=== PATIENT | male | born 1960 | race Caucasian/White ===

== ENCOUNTER 2021-07-16 21:50 | Emergency (ER) | payer OTHER ==
--- NOTE | 2021-07-16 21:52 | ERPHSYRPT ---
- History of Present Illness Time Seen by Provider: 07/16/21 21:51 Source: patient Exam Limitations: no limitations Physician History: This is a 61-year-old white male who has not been feeling well for approximately 5 days. Initially he had a mild cough mild shortness of breath muscle aches and pains. Those symptoms have improved but he does feels weak and just does not feel well his a lot of fatigue. Patient went to [facility] in an outpatient clinic and had a rapid COVID-19 test performed and it came back positive. Patient does not take any medications chronically and he has no known drug allergies. His primary care physician is Dr. Roman. The [facility] told him to go to the nearest emergency room to be evaluated and to obtain a CAT scan of the chest to better define any pulmonary issues. Patient does not have any chest pain. Is not had any nausea vomiting or diarrhea recently. He does state he has not been drinking well in the last several days because food and drink does not taste good to him. Timing/Duration: day(s) (5) Cough Quality/Degree: mild Possible Cause: no prior episodes Modifying Factors: Improves With: coughing Associated Symptoms: cough, muscle aches, shortness of breath, No chest pain/soreness Allergies/Adverse Reactions: No Known Drug Allergies Allergy (Unverified 07/16/21 22:01) Home Medications: No Reportable Medications [No Reported Medications] 07/16/21 [History] Travel Risk - International Travel Have you traveled outside of the country in past 3 weeks: No - Coronavirus Screening Are you exhibiting any of the following symptoms?: Yes Symptoms: Cough: New Onset, Shortness of Breath, Loss of Taste or Smell, Headaches/Body Aches/Fatigue Close contact with a COVID-19 positive Pt in past 14-21 Days: No - Review of Systems Constitutional: Fatigue Eyes: No Symptoms Ears, Nose, & Throat: No Symptoms Respiratory: Cough, Dyspnea Cardiac: No Symptoms Abdominal/Gastrointestinal: No Symptoms Genitourinary Symptoms: No Symptoms Musculoskeletal: Arthralgias, Myalgias Neurological: No Symptoms Psychological: No Symptoms Endocrine: No Symptoms Hematologic/Lymphatic: No Symptoms Immunological/Allergic: No Symptoms All Other Systems: Reviewed and Negative - Past Medical History Pertinent Past Medical History: Yes Neurological History: No Pertinent History ENT History: No Pertinent History Cardiac History: No Pertinent History Respiratory History: No Pertinent History Endocrine Medical History: No Pertinent History Musculoskeletal History: No Pertinent History GI Medical History: No Pertinent History History: No Pertinent History Psycho-Social History: No Pertinent History Male Reproductive Disorders: No Pertinent History - Past Surgical History Past Surgical History: Yes Neuro Surgical History: No Pertinent History Cardiac: No Pertinent History Respiratory: No Pertinent History Gastrointestinal: No Pertinent History Genitourinary: No Pertinent History Musculoskeletal: No Pertinent History Male Surgical History: No Pertinent History Other Surgical History: no surgeries - Social History Smoking Status: Current every day smoker Exposure to second hand smoke: No Drug Use: none - Nursing Vital Signs Nursing Vital Signs: Initial Vital Signs Temperature 98.8 F 07/16/21 22:03 Pulse Rate 79 07/16/21 22:03 Respiratory Rate 22 07/16/21 22:03 Blood Pressure 143/87 07/16/21 22:03 O2 Sat by Pulse Oximetry 97 07/16/21 22:03 Pain Scale Pain Intensity 0 - Physical Exam General Appearance: no apparent distress, alert, anxiety Eye Exam: PERRL/EOMI, eyes nml inspection Ears, Nose, Throat Exam: normal ENT inspection, moist mucous membranes Neck Exam: normal inspection, non-tender, supple, full range of motion Respiratory Exam: normal breath sounds, lungs clear, airway intact, No chest te nderness, No respiratory distress Cardiovascular Exam: regular rate/rhythm, normal heart sounds, normal peripheral pulses Gastrointestinal/Abdomen Exam: soft, normal bowel sounds, No tenderness Rectal Exam: not done Back Exam: normal inspection, normal range of motion, No CVA tenderness, No vertebral tenderness Extremity Exam: normal inspection, normal range of motion, pelvis stable Neurologic Exam: alert, oriented x 3, cooperative, industrial sewer II-XII nml as tested, normal mood/affect, nml cerebellar function, nml station & gait, sensation nml Skin Exam: normal color, warm, dry Lymphatic Exam: No adenopathy SpO2 Interpretation: normal O2 Delivery: Room Air - Course Nursing assessment & vital signs reviewed: Yes EKG Interpreted by Me: RATE (78), Sinus Rhythm, NORMAL AXIS, NORMAL INTERVALS, NORMAL QRS, NORMAL ST-T, Other (No acute ischemic changes on today's EKG. There is no comparison EKG available) Ordered Tests: Active Orders 24 hr Category Date Time Status EKG-ER Only STAT Care 07/16/21 22:06 Active IV Insertion STAT Care 07/16/21 22:06 Active Pulse Oximetry (ED) STAT Care 07/16/21 22:06 Active CHEST WITH CONTRAST [CT] Stat Exams 07/16/21 23:54 Taken BMP Stat Lab 07/16/21 22:20 Completed CBC W DIFF Stat Lab 07/16/21 22:20 Completed D-DIMER QUANTITATIVE Stat Lab 07/16/21 22:20 Completed INFLUENZA A+B RICHARD Stat Lab 07/16/21 22:35 Completed Manual Differential NC Stat Lab 07/16/21 22:20 Completed [place] Screen Stat Lab 07/16/21 22:20 Completed TROPONIN Q3H Lab 07/16/21 22:20 Completed TROPONIN Q3H Lab 07/17/21 01:15 Ordered TROPONIN Q3H Lab 07/17/21 04:15 Ordered TROPONIN Q3H Lab 07/17/21 07:15 Ordered TROPONIN Q3H Lab 07/17/21 10:15 Ordered Medication Summary Discontinued Medications Generic Name Dose Route Start Last Admin Trade Name Robinsonq PRN Reason Stop Dose Admin Sodium Chloride 1,000 mls @ 999 mls/hr 07/16/21 22:21 07/16/21 23:42 Sodium Chloride 0.9% 1000 Ml IV 07/16/21 23:21 Infused .Q1H1M STA Infusion Sodium Chloride Confirm 07/16/21 22:26 Sodium Chloride 0.9% 1000 Ml Administered 07/16/21 22:27 Dose 1,000 mls @ ud .ROUTE .STK-MED ONE Lab/Rad Data: Laboratory Result Diagrams 07/16/21 22:20 07/16/21 22:20 Laboratory Results 07/16/21 07/16/21 07/16/21 Range/Units 22:35 22:20 22:20 WBC 5.7 (4.0-10.5) K/mm3 RBC 4.86 (4.1-5.6) M/mm3 Hgb 14.4 (12.5-18.0) gm/dl Hct 44.2 (42-50) % MCV 90.9 (78-100) fl MCH 29.6 (26-32) pg MCHC 32.6 (32-36) g/dl RDW 13.1 (11.5-14.0) % Plt Count 257 (150-450) K/mm3 MPV 10.0 (7.5-11.0) fl Segmented Neutrophils 81 H (36.-66.) % Lymphocytes (Manual) 9 L (24-44) % Monocytes (Manual) 10 (0.0-12.0) % Platelet Estimate NORMAL (NORMAL) RBC Morphology NORMAL D-Dimer (215-500) ng/mL Sodium (137-145) mmol/L Potassium (3.5-5.1) mmol/L Chloride (98-107) mmol/L Carbon Dioxide (22-30) mmol/L Anion Gap (5-15) MEQ/L BUN (9-20) mg/dL Creatinine (0.66-1.25) mg/dL Estimated GFR ML/MIN Glucose (74-106) mg/dL Calcium (8.4-10.2) mg/dL Troponin I (0.000-0.034) ng/mL Monoscreen NEGATIVE (Negative) Influenza Type A Ag NEGATIVE (NEGATIVE) Influenza Type B Ag NEGATIVE (NEGATIVE) 07/16/21 07/16/21 07/16/21 Range/Units 22:20 22:20 22:20 WBC (4.0-10.5) K/mm3 RBC (4.1-5.6) M/mm3 Hgb (12.5-18.0) gm/dl Hct (42-50) % MCV (78-100) fl MCH (26-32) pg MCHC (32-36) g/dl RDW (11.5-14.0) % Plt Count (150-450) K/mm3 MPV (7.5-11.0) fl Segmented Neutrophils (36.-66.) % Lymphocytes (Manual) (24-44) % Monocytes (Manual) (0.0-12.0) % Platelet Estimate (NORMAL) RBC Morphology D-Dimer 997 H* (215-500) ng/mL Sodium 137 (137-145) mmol/L Potassium 4.1 (3.5-5.1) mmol/L Chloride 100 (98-107) mmol/L Carbon Dioxide 27 (22-30) mmol/L Anion Gap 14.6 (5-15) MEQ/L BUN 17 (9-20) mg/dL Creatinine 1.03 (0.66-1.25) mg/dL Estimated GFR > 60.0 ML/MIN Glucose 107 H (74-106) mg/dL Calcium 8.9 (8.4-10.2) mg/dL Troponin I < 0.012 (0.000-0.034) ng/mL Monoscreen (Negative) Influenza Type A Ag (NEGATIVE) Influenza Type B Ag (NEGATIVE) - Progress Progress: improved Air Movement: good Progress Note: 07/17/21 00:50 CTA of chest with contrast shows no evidence of pulmonary embolism. There is bilateral patchy multifocal groundglass interstitial opacities with peripheral distribution Blood Culture(s) Obtained: No Antibiotics given: No Counseled pt/family regarding: lab results, diagnosis, need for follow-up, rad results - Departure Departure Disposition: Home Clinical Impression: COVID-19 virus infection Condition: Stable Critical Care Time: No Referrals: NELDA ROMAN MD [Primary Care Provider] - Additional Instructions: Drink plenty of fluids. Use Tylenol ibuprofen for fever control and muscle aches and pains. Follow-up with your primary care physician for further management.
[2021-07-16] MEDS ORDERED: Sodium Chloride 0.9% 1000 ML 1,000 ML IV STA (22:21)
[2021-07-16] MEDS ORDERED: Sodium Chloride 0.9% 1000 ML 1,000 ML ONE (22:26)
[2021-07-16 22:31] LABS: Hematocrit 44.2 % (42-50); Hemoglobin 14.4 gm/dl (12.5-18.0); Mean Cell Volume 90.9 fl (78-100); Mean Corpuscular Hemoglobin 29.6 pg (26-32); Mean Corpuscular Hgb Concent. 32.6 g/dl (32-36); Platelet Count 257 K/mm3 (150-450); Red Blood Count 4.86 M/mm3 (4.1-5.6); Red Cell Distribution Width 13.1 % (11.5-14.0); White Blood Count 5.7 K/mm3 (4.0-10.5)
[2021-07-16 22:43] LABS: ANION GAP 14.6 MEQ/L (5-15); BLOOD UREA NITROGEN 17 mg/dL (9-20); CHLORIDE 100 mmol/L (98-107); Calcium 8.9 mg/dL (8.4-10.2); Carbon Dioxide 27 mmol/L (22-30); Creatinine 1 1.03 mg/dL (0.66-1.25); EST GLOMERULAR FILTRATION RATE > 60.0 ML/MIN; Glucose 107 mg/dL (74-106); Potassium 4.1 mmol/L (3.5-5.1); SODIUM 137 mmol/L (137-145)
[2021-07-16 23:00] LABS: INFLUENZA A NEGATIVE (NEGATIVE); INFLUENZA B NEGATIVE (NEGATIVE)
[2021-07-16 23:26] LABS: Lymphocytes 9 % (24-44); Monocyte 10 % (0.0-12.0); Neutrophils 81 % (36.-66.); Platelet Estimate NORMAL (NORMAL); Total Cells Counted 100
[2021-07-17 00:55] VITALS: O2SAT 96
[2021-07-17 01:06] VITALS: BP 116/67; PULSE 87
--- NOTE | 2021-07-17 09:03 | XRAY ---
Indication: Elevated d-dimer. Positive Covid 19. Multiple contiguous axial images obtained through the chest using 80 cc Isovue 370 contrast and PE protocol. Comparison: None Good opacification of the pulmonary arteries to include the lobar and segmental branches. No pulmonary embolus. Heart not enlarged. Aorta is normal in course and caliber. Tiny mediastinal and bilateral hilar calcified nodes. No pathologic mediastinal/hilar lymphadenopathy. Lungs demonstrates diffuse bilateral predominantly peripheral consolidating/nonconsolidating airspace disease. No effusion. A few incidental bibasilar calcified granulomas. Bony thorax intact with remote appearing T8 superior endplate concave deformity either Schmorl node versus old fracture. Limited upper abdomen demonstrates tiny hepatic/splenic calcified granulomas. Impression: 1. Negative pulmonary embolus. 2. Diffuse bilateral consolidating/nonconsolidating airspace disease. Commonly reported imaging features of Covid 19 pneumonia are present. Other processes such as influenza pneumonia and organizing pneumonia, as can be seen with drug toxicity and connective-tissue disease, can cause a similar imaging pattern. 3. Incidental old granulomatous disease. Comment: Preliminary interpretation made by C. No critical discrepancy.
== END 2021-07-17 01:05 | disposition home or self-care (01) ==
LOC: ED 21:50
DX: U07.1 COVID-19 (principal)
CPT/HCPCS: 36000; 36415; 71260; 80048; 84484; 85025; 85379; 86308; 87400; 93005; 94760; 96360; 99284